=== PATIENT | female | born 1960 | race Caucasian/White ===

== ENCOUNTER 2016-12-29 19:42 | Emergency (ER) | payer OTHER ==
[2016-12-29 20:24] LABS: BILIRUBIN NEGATIVE (NEGATIVE); BLOOD NEGATIVE Ery/uL (NEGATIVE); CLARITY CLEAR (CLEAR); COLOR YELLOW (YELLOW); GLUCOSE (U) 3+ mg/dL (NORMAL); KETONE (U) TRACE mg/dL (NEGATIVE); LEUKOCYTES NEGATIVE Leu/uL (NEGATIVE); NITRITE NEGATIVE (NEGATIVE); PROTEIN NEGATIVE (NEGATIVE); UROBILINOGEN 0.2 mg/dL (0.2-1.0); pH 5.5 (5.0-9.0)
== END 2016-12-29 23:10 | disposition home or self-care (01) ==
LOC: FER 19:42
PROVIDERS: Emergency Medicine Emergency Medical Services
DX: M54.5 Low back pain (principal); R10.12 Left upper quadrant pain; R11.0 Nausea; Z87.442 Personal history of urinary calculi; Z90.49 Acquired absence of other specified parts of digestive tract
CPT/HCPCS: 81003